=== PATIENT | female | born 1970 | race African-American/Black ===

== ENCOUNTER 2017-03-11 13:37 | Emergency (ER) | payer MEDICAID, OTHER ==
[~2017-03-11] VITALS: Ht 170.2 cm; Wt 100.0 kg
[~2017-03-11 13:37] MED LIST: [UNRECOGNIZED DRUG - REMARK]; [UNRECOGNIZED DRUG - REMARK]
[2017-03-11] MEDS ORDERED: ERYTHROMYCIN 0.5% 3.5 GM TUBE OPHTHALMIC OINTMENT OU ONE (14:30)
[2017-03-11 15:12] VITALS: BP 141/79
== END 2017-03-11 15:12 | disposition home or self-care (01) ==
LOC: EMS 13:40
DX: H10.89 Other conjunctivitis (principal); E78.00 Pure hypercholesterolemia, unspecified; I10 Essential (primary) hypertension; F17.210 Nicotine dependence, cigarettes, uncomplicated; Z88.1 Allergy status to other antibiotic agents
CPT/HCPCS: 99283